=== PATIENT | female | born 1940 | race Caucasian/White ===

== ENCOUNTER 2020-04-01 09:23 | Inpatient (IN) ==
[2020-04-01] MEDS ORDERED: SODIUM CHLORIDE 0.9% 500 ML IV STA (10:03)
[2020-04-01] MEDS ORDERED: ONDANSETRON 4 MG/2 ML VIAL IV STA (10:03)
[2020-04-01 10:16] LABS: Basophils # 0.1 10*3/uL (0.0-0.2); Basophils % 0.3 % (0.0-0.8); Eosinophils # 0.2 10*3/uL (0.0-0.87); Eosinophils % 0.8 % (0.00-10.9); Hematocrit 35.4 VOL% (35.7-47.0); Immature Granulocytes % 0.6 %; Immature Granulocytes Absolute 0.12 #; Lymphocytes # 0.8 10*3/uL (1.4-4.0); Lymphocytes % 3.9 % (21.3-54.2); Mean Corpuscular HGB Conc 31.1 GM/DL (32-36); Mean Corpuscular Volume 84.5 FL (87-102); Mean Platelet Volume 8.5 FL (9.6-12.0); Neutrophils % 88.4 % (38.7-73.9); Platelet Count 492 T/CUMM (130-400); Red Blood Count 4.19 MC/CUMM (3.8-5.5); Red Cell Distribution Width 15.7 % (9.3-17.3); White Blood Count 21.1 T/CUMM (4-12)
[2020-04-01 10:23] LABS: Apearance,Urine CLEAR (Clear); Bilirubin,Urine Negative (Negative); Blood, Urine Small mg/dL (Negative); Glucose,Urine (UA) Negative (Negative); Ketones,Urine Negative (Negative); Mucus,Urine Occasional /LPF (Occasional); Nitrite,Urine Negative (Negative); Protein,Urine 30 MG/DL; RBC,Urine 4 /HPF (0-4); Squamous Epithelial Cell,Urine Occasional /HPF (0-10); Urine Color Yellow (Yellow); Urine Specific Gravity 1.015 (1.001-1.035); Urine Urobilinogen < 2.0 EU/DL (0.2-1.0); WBC,Urine <1 /HPF (0-6)
[2020-04-01] MEDS ORDERED: amLODIPine 10 MG TABLET ONE (10:29)
[2020-04-01] MEDS ORDERED: METOPROLOL TARTRATE 5 MG/5 ML VIAL IV ONE (10:29)
[2020-04-01] MEDS ORDERED: amLODIPine 5 MG TABLET PO STA (10:30)
[2020-04-01] MEDS ORDERED: METOPROLOL TARTRATE 5 MG/5 ML VIAL IV STA (10:30)
[2020-04-01 10:34] LABS: Eosinophils 2 % (0-10); Hypochromasia 1+; Lymphocytes 6 % (20-55); Ovalocytes Slight; Platelet Estimate Adequate; Segmented Neutrophils 90 % (50-85); Total Cells Counted 100
[2020-04-01 10:35] LABS: Albumin 3.3 G/DL (3.4-5.0); Bilirubin,Total 0.6 MG/DL (0.2-1.0); Microcytosis 1+; Osmolality,Calculated 266.7 MOS/KG (273-304); Total Protein 8.2 G/DL (6.4-8.3)
[2020-04-01] MEDS ORDERED: HYDROmorphone 2 MG/1 ML VIAL IV STA (11:10)
[2020-04-01] MEDS ORDERED: ONDANSETRON 4 MG/2 ML VIAL IV PRN (11:48)
[2020-04-01] MEDS ORDERED: ACETAMINOPHEN 325 MG TABLET PO PRN (11:48)
[2020-04-01] MEDS ORDERED: hydrALAZINE 20 MG/1 ML VIAL IV PRN ×2 (14:07→15:51)
[2020-04-01] MEDS: PIPERACILLIN/TAZOBACTAM 3,375 MG in SODIUM CHLORIDE 0.9% 100 ML IV SCH (16:20)
[2020-04-01] MEDS: LACTATED RINGERS 1,000 ML IV SCH (16:20)
[2020-04-01] MEDS: HYDROmorphone 2 MG/1 ML VIAL IV PRN ×2 (17:26→21:33)
[2020-04-02] MEDS: PIPERACILLIN/TAZOBACTAM 3,375 MG in SODIUM CHLORIDE 0.9% 100 ML IV SCH ×3 (00:50→17:10)
[2020-04-02] MEDS: HYDROmorphone 2 MG/1 ML VIAL IV PRN ×6 (00:55→22:58)
[2020-04-02] MEDS: LACTATED RINGERS 1,000 ML IV SCH ×2 (07:06→17:10)
[2020-04-02] MEDS: LISINOPRIL/HCTZ 20-12.5 MG TABLET PO SCH (09:06)
[2020-04-02 09:34] LABS: Basophils % 0.3 % (0.0-0.8); Eosinophils # 0.1 10*3/uL (0.0-0.87); Eosinophils % 0.9 % (0.00-10.9); Hematocrit 30.6 VOL% (35.7-47.0); Immature Granulocytes % 0.3 %; Immature Granulocytes Absolute 0.03 #; Lymphocytes # 2.2 10*3/uL (1.4-4.0); Lymphocytes % 18.9 % (21.3-54.2); Mean Corpuscular HGB Conc 29.4 GM/DL (32-36); Mean Corpuscular Volume 85.5 FL (87-102); Mean Platelet Volume 8.6 FL (9.6-12.0); Monocytes % 9.6 % (1.7-12.7); Platelet Count 418 T/CUMM (130-400); Red Blood Count 3.58 MC/CUMM (3.8-5.5); Red Cell Distribution Width 15.9 % (9.3-17.3); White Blood Count 11.8 T/CUMM (4-12)
[2020-04-02 09:51] LABS: Calcium 8.8 MG/DL (8.5-10.1); Osmolality,Calculated 260.7 MOS/KG (273-304)
[2020-04-02] MEDS: PANTOPRAZOLE 40 MG VIAL IV SCH (12:00)
[2020-04-03] MEDS: PIPERACILLIN/TAZOBACTAM 3,375 MG in SODIUM CHLORIDE 0.9% 100 ML IV SCH ×2 (01:19→10:30)
[2020-04-03] MEDS: LACTATED RINGERS 1,000 ML IV SCH (01:20)
[2020-04-03] MEDS: HYDROmorphone 2 MG/1 ML VIAL IV PRN ×2 (05:33→10:42)
[2020-04-03] MEDS: LISINOPRIL/HCTZ 20-12.5 MG TABLET PO SCH (10:18)
[2020-04-03] MEDS: PANTOPRAZOLE 40 MG VIAL IV SCH (10:19)
[2020-04-03 16:04] VITALS: BP 136/65
[2020-04-03] MEDS ORDERED: AMOXICILLIN/CLAV 875 MG TABLET PO SCH (21:00)
== END 2020-04-03 18:07 | disposition home or self-care (01) | DRG 392 ==
LOC: N.ED 09:23 → N.EDINP 11:48 → N.3E 15:15
PROVIDERS: ADMIT Surgery; ATTEND Surgery

== ENCOUNTER 2020-07-23 08:01 | Inpatient (IN) ==
[2020-07-23] MEDS ORDERED: FUROSEMIDE 40 MG/4 ML VIAL IV STA (08:31)
[2020-07-23 09:01] LABS: Basophils # 0.1 10*3/uL (0.0-0.2); Basophils % 0.5 % (0.0-0.8); Eosinophils # 1.6 10*3/uL (0.0-0.87); Hematocrit 26.4 VOL% (35.7-47.0); Hemoglobin 7.9 GM/DL (12.0-16.0); Immature Granulocytes % 0.5 %; Immature Granulocytes Absolute 0.08 #; Lymphocytes # 1.3 10*3/uL (1.4-4.0); Lymphocytes % 8.9 % (21.3-54.2); Mean Corpuscular HGB Conc 29.9 GM/DL (32-36); Mean Corpuscular Volume 79.8 FL (87-102); Mean Platelet Volume 8.5 FL (9.6-12.0); Monocytes % 11.2 % (1.7-12.7); Neutrophils % 67.9 % (38.7-73.9); Platelet Count 433 T/CUMM (130-400); Red Blood Count 3.31 MC/CUMM (3.8-5.5); Red Cell Distribution Width 16.9 % (9.3-17.3); White Blood Count 14.6 T/CUMM (4-12)
[2020-07-23 09:21] LABS: INR 1.1; Partial Thromboplastin Time 28.8 SECS (23.9-33.8)
[2020-07-23] MEDS ORDERED: DILTIAZEM 50 MG/10 ML VIAL IV STA (09:21)
[2020-07-23 09:22] LABS: Eosinophils 12 % (0-10); Hypochromasia 2+; Lymphocytes 8 % (20-55); Microcytosis 1+; Platelet Estimate Adequate; Segmented Neutrophils 70 % (50-85); Total Cells Counted 100
[2020-07-23] MEDS ORDERED: DILTIAZEM 25 MG/5 ML VIAL IV ONE (09:23)
[2020-07-23 09:24] LABS: Alanine Aminotransferase 12 U/L (13-56); Albumin 2.4 G/DL (3.4-5.0); Alkaline Phosphatase 122 U/L (45-117); Aspartate Amino Transferase 16 U/L (0-37); Bilirubin,Total < 0.39 MG/DL (0.2-1.0); Blood Urea Nitrogen 36 MG/DL (7-18); Estimated Glom Filtration Rate 30 ML/MIN; Glucose 106 MG/DL (74-106); Osmolality,Calculated 282.7 MOS/KG (273-304); Total Protein 7.3 G/DL (6.4-8.3)
[2020-07-23 09:29] LABS: Apearance,Urine CLEAR (Clear); Bilirubin,Urine Negative (Negative); Blood, Urine Negative (Negative); Glucose,Urine (UA) Negative (Negative); Hyaline Casts,Urine 5 /LPF (0-3); Ketones,Urine Negative (Negative); Mucus,Urine Occasional /LPF (Occasional); Nitrite,Urine Negative (Negative); Protein,Urine 30 MG/DL; RBC,Urine 3 /HPF (0-4); Squamous Epithelial Cell,Urine Occasional /HPF (0-10); Urine Color Yellow (Yellow); Urine Specific Gravity 1.017 (1.001-1.035); Urine Urobilinogen < 2.0 EU/DL (0.2-1.0); WBC,Urine 3 /HPF (0-6)
[2020-07-23] MEDS ORDERED: dilTIAZem Drip 125 MG/125 ML PREMIX IV SCH (09:30)
[2020-07-23] MEDS ORDERED: GLUCAGON 1 MG VIAL IM PRN (10:40)
[2020-07-23] MEDS ORDERED: DEXTROSE 50% 25 GM/50 ML VIAL IV PRN (10:40)
[2020-07-23] MEDS ORDERED: ONDANSETRON 4 MG/2 ML VIAL IV PRN (10:40)
[2020-07-23] MEDS ORDERED: ACETAMINOPHEN 325 MG TABLET PO PRN (10:40)
[2020-07-23] MEDS ORDERED: diphenhydrAMINE CAP 25 MG CAPSULE PO PRN (11:21)
[2020-07-23 11:54] LABS: % Iron Saturation 4.2 % (18-50)
[2020-07-23] MEDS ORDERED: ENOXAPARIN 100 MG/ML SYRINGE SUBCUT SCH (13:00)
[2020-07-23 13:38] LABS: Folate 12.3 NG/ML (5.4-24.0)
[2020-07-23] MEDS: SODIUM CHLORIDE 0.9% 1,000 ML IV SCH (14:39)
[2020-07-23] MEDS: IRON SUCROSE 200 MG in SODIUM CHLORIDE 0.9% 100 ML IV SCH (14:39)
[2020-07-23] MEDS: VANCOMYCIN INJ 1,500 MG in SODIUM CHLORIDE 0.9% 500 ML IV SCH (15:55)
[2020-07-23] MEDS ORDERED: SKIN HEALING OINT (AQUAPHOR) 50 GM TUBE TOP PRN (16:32)
[2020-07-23] MEDS ORDERED: diphenhydrAMINE 50 MG/1 ML VIAL IV PRN (16:48)
[2020-07-23] MEDS ORDERED: diphenhydrAMINE CAP 25 MG CAPSULE PO SCH (18:00)
[2020-07-23] MEDS: dilTIAZem Drip 125 MG/125 ML PREMIX IV SCH (18:21)
[2020-07-23] MEDS: CEFEPIME 1,000 MG in SODIUM CHLORIDE 0.9% 100 ML IV SCH (18:36)
[2020-07-23] MEDS: METOPROLOL TARTRATE 25 MG TABLET PO SCH (21:06)
[2020-07-23] MEDS: ASCORBIC ACID 500 MG TABLET PO SCH (21:06)
[2020-07-23] MEDS: rOPINIRole 4 MG TABLET PO SCH (21:06)
[2020-07-23] MEDS: CYCLOBENZAPRINE 10 MG TABLET PO SCH (21:06)
[2020-07-24] MEDS: dilTIAZem Drip 125 MG/125 ML PREMIX IV SCH (01:39)
[2020-07-24 05:23] LABS: Basophils # 0.1 10*3/uL (0.0-0.2); Basophils % 0.4 % (0.0-0.8); Eosinophils # 2.1 10*3/uL (0.0-0.87); Eosinophils % 14.8 % (0.00-10.9); Hematocrit 24.7 VOL% (35.7-47.0); Hemoglobin 7.4 GM/DL (12.0-16.0); Immature Granulocytes % 0.6 %; Immature Granulocytes Absolute 0.08 #; Lymphocytes # 1.3 10*3/uL (1.4-4.0); Lymphocytes % 9.5 % (21.3-54.2); Mean Corpuscular Volume 79.7 FL (87-102); Mean Platelet Volume 8.6 FL (9.6-12.0); Monocytes % 12.2 % (1.7-12.7); Neutrophils % 62.5 % (38.7-73.9); Platelet Count 417 T/CUMM (130-400); Red Cell Distribution Width 16.7 % (9.3-17.3); White Blood Count 14.2 T/CUMM (4-12)
[2020-07-24] MEDS: CEFEPIME 1,000 MG in SODIUM CHLORIDE 0.9% 100 ML IV SCH ×2 (05:39→17:04)
[2020-07-24] MEDS: SODIUM CHLORIDE 0.9% 1,000 ML IV SCH ×3 (05:42→17:05)
[2020-07-24 06:01] LABS: Albumin 1.9 G/DL (3.4-5.0); Bilirubin,Total 0.9 MG/DL (0.2-1.0); Calcium 7.9 MG/DL (8.5-10.1); Osmolality,Calculated 283.5 MOS/KG (273-304); Thyroid Stimulating Hormone 3.66 uIU/ml (0.358-3.74); Total Protein 6.4 G/DL (6.4-8.3)
[2020-07-24 06:22] LABS: Elliptocytes Few; Eosinophils 7 % (0-10); Hypochromasia 3+; Lymphocytes 12 % (20-55); Platelet Estimate Increased; Polychromasia Slight; Schistocytes Few; Segmented Neutrophils 74 % (50-85); Total Cells Counted 100
[2020-07-24] MEDS ORDERED: MAGNESIUM SULF RIDER 2 GM in PREMIX 1 EACH IV PRN (06:49)
[2020-07-24] MEDS ORDERED: MAGNESIUM SULF RIDER 4 GM in PREMIX 1 EACH IV PRN (06:49)
[2020-07-24] MEDS ORDERED: FUROSEMIDE 40 MG/4 ML VIAL IV SCH (09:00)
[2020-07-24] MEDS ORDERED: POTASSIUM CHLORIDE 20 MEQ TABLET PO ONE (09:08)
[2020-07-24] MEDS ORDERED: MAGNESIUM SULF RIDER 4 GM in PREMIX 1 EACH IV ONE (09:08)
[2020-07-24] MEDS: ASCORBIC ACID 500 MG TABLET PO SCH ×2 (09:34→21:36)
[2020-07-24] MEDS: ASPIRIN EC 81 MG TABLET PO SCH (09:34)
[2020-07-24] MEDS: METOPROLOL TARTRATE 25 MG TABLET PO SCH ×2 (09:34→21:37)
[2020-07-24] MEDS: ESCITALOPRAM 10 MG TABLET PO SCH (09:38)
[2020-07-24] MEDS: IRON SUCROSE 200 MG in SODIUM CHLORIDE 0.9% 100 ML IV SCH (09:39)
[2020-07-24] MEDS: ENOXAPARIN 30 MG/0.3 ML SYRINGE SUBCUT SCH (09:39)
[2020-07-24] MEDS: VANCOMYCIN INJ 1,500 MG in SODIUM CHLORIDE 0.9% 500 ML IV SCH (15:26)
[2020-07-24] MEDS: CYCLOBENZAPRINE 10 MG TABLET PO SCH (21:36)
[2020-07-24] MEDS: rOPINIRole 4 MG TABLET PO SCH (21:36)
[2020-07-25] MEDS: SODIUM CHLORIDE 0.9% 1,000 ML IV SCH (04:38)
[2020-07-25] MEDS: CEFEPIME 1,000 MG in SODIUM CHLORIDE 0.9% 100 ML IV SCH ×2 (05:54→17:16)
[2020-07-25 06:25] LABS: Basophils % 0.3 % (0.0-0.8); Eosinophils # 1.9 10*3/uL (0.0-0.87); Eosinophils % 14.3 % (0.00-10.9); Hematocrit 25.6 VOL% (35.7-47.0); Hemoglobin 7.7 GM/DL (12.0-16.0); Immature Granulocytes % 0.8 %; Lymphocytes # 1.5 10*3/uL (1.4-4.0); Lymphocytes % 11.2 % (21.3-54.2); Mean Corpuscular HGB Conc 30.1 GM/DL (32-36); Mean Corpuscular Volume 79.5 FL (87-102); Mean Platelet Volume 8.7 FL (9.6-12.0); Monocytes % 11.3 % (1.7-12.7); Neutrophils % 62.1 % (38.7-73.9); Platelet Count 445 T/CUMM (130-400); Red Blood Count 3.22 MC/CUMM (3.8-5.5); Red Cell Distribution Width 17.3 % (9.3-17.3); White Blood Count 13.3 T/CUMM (4-12)
[2020-07-25 06:49] LABS: Alanine Aminotransferase 11 U/L (13-56); Albumin 1.9 G/DL (3.4-5.0); Alkaline Phosphatase 119 U/L (45-117); Aspartate Amino Transferase 15 U/L (0-37); Bilirubin,Total < 0.39 MG/DL (0.2-1.0); Blood Urea Nitrogen 29 MG/DL (7-18); Calcium 8.5 MG/DL (8.5-10.1); Estimated Glom Filtration Rate 50 ML/MIN; Glucose 94 MG/DL (74-106); Osmolality,Calculated 280.7 MOS/KG (273-304); Total Protein 6.8 G/DL (6.4-8.3)
[2020-07-25] MEDS: METOPROLOL TARTRATE 25 MG TABLET PO SCH ×3 (09:34→22:02)
[2020-07-25] MEDS: ASPIRIN EC 81 MG TABLET PO SCH (09:34)
[2020-07-25] MEDS: ESCITALOPRAM 10 MG TABLET PO SCH (09:34)
[2020-07-25] MEDS: ENOXAPARIN 30 MG/0.3 ML SYRINGE SUBCUT SCH (09:35)
[2020-07-25] MEDS: IRON SUCROSE 200 MG in SODIUM CHLORIDE 0.9% 100 ML IV SCH (09:36)
[2020-07-25] MEDS: ASCORBIC ACID 500 MG TABLET PO SCH ×2 (09:43→20:54)
[2020-07-25 10:09] LABS: Band Neutrophils 2 % (0-10); Elliptocytes Few; Eosinophils 11 % (0-10); Hypochromasia 3+; Lymphocytes 8 % (20-55); Platelet Estimate Increased; Polychromasia Slight; Schistocytes Few; Segmented Neutrophils 67 % (50-85); Target Cells Few; Total Cells Counted 100
[2020-07-25] MEDS: FUROSEMIDE 40 MG/4 ML VIAL IV SCH (11:44)
[2020-07-25] MEDS: VANCOMYCIN INJ 1,500 MG in SODIUM CHLORIDE 0.9% 500 ML IV SCH (14:41)
[2020-07-25] MEDS: NYSTATIN 500,000 UNIT/5 ML UDCUP SWISH/SWAL SCH ×2 (17:17→20:54)
[2020-07-25] MEDS: rOPINIRole 4 MG TABLET PO SCH (20:54)
[2020-07-25] MEDS: CYCLOBENZAPRINE 10 MG TABLET PO SCH (20:54)
[2020-07-26 05:48] LABS: Basophils # 0.1 10*3/uL (0.0-0.2); Basophils % 0.6 % (0.0-0.8); Eosinophils # 1.8 10*3/uL (0.0-0.87); Eosinophils % 12.8 % (0.00-10.9); Hematocrit 24.9 VOL% (35.7-47.0); Hemoglobin 7.7 GM/DL (12.0-16.0); Immature Granulocytes % 1.5 %; Immature Granulocytes Absolute 0.22 #; Lymphocytes # 1.9 10*3/uL (1.4-4.0); Mean Corpuscular HGB Conc 30.9 GM/DL (32-36); Mean Corpuscular Volume 77.8 FL (87-102); Mean Platelet Volume 8.8 FL (9.6-12.0); Monocytes % 8.6 % (1.7-12.7); NRBC # 0.03 10*3/uL; Neutrophils % 63.5 % (38.7-73.9); Platelet Count 481 T/CUMM (130-400); Red Cell Distribution Width 17.1 % (9.3-17.3); White Blood Count 14.3 T/CUMM (4-12)
[2020-07-26] MEDS: CEFEPIME 1,000 MG in SODIUM CHLORIDE 0.9% 100 ML IV SCH (06:11)
[2020-07-26 06:14] LABS: Alanine Aminotransferase 13 U/L (13-56); Alkaline Phosphatase 117 U/L (45-117); Aspartate Amino Transferase 20 U/L (0-37); Bilirubin,Total < 0.39 MG/DL (0.2-1.0); Blood Urea Nitrogen 25 MG/DL (7-18); Calcium 8.5 MG/DL (8.5-10.1); Estimated Glom Filtration Rate 41 ML/MIN; Glucose 84 MG/DL (74-106); Osmolality,Calculated 277.7 MOS/KG (273-304); Total Protein 6.9 G/DL (6.4-8.3)
[2020-07-26 06:23] LABS: Eosinophils 19 % (0-10); Hypochromasia 2+; Lymphocytes 14 % (20-55); Microcytosis Slight; Nucleated Red Blood Cells 1 (0-5); Platelet Estimate Increased; Segmented Neutrophils 57 % (50-85); Total Cells Counted 100
[2020-07-26] MEDS ORDERED: ACETAMINOPHEN 325 MG TABLET PO SCH (07:00)
[2020-07-26] MEDS ORDERED: SODIUM CHLORIDE 0.9% 1,000 ML IV PRN (07:00)
[2020-07-26] MEDS ORDERED: FUROSEMIDE 20 MG/2 ML VIAL IV SCH (07:00)
[2020-07-26] MEDS ORDERED: diphenhydrAMINE CAP 25 MG CAPSULE PO SCH (07:00)
[2020-07-26] MEDS: ENOXAPARIN 30 MG/0.3 ML SYRINGE SUBCUT SCH (09:22)
[2020-07-26] MEDS: IRON SUCROSE 200 MG in SODIUM CHLORIDE 0.9% 100 ML IV SCH (09:22)
[2020-07-26] MEDS: FUROSEMIDE 40 MG/4 ML VIAL IV SCH (09:23)
[2020-07-26] MEDS: NYSTATIN 500,000 UNIT/5 ML UDCUP SWISH/SWAL SCH ×4 (09:23→21:51)
[2020-07-26] MEDS: METOPROLOL TARTRATE 25 MG TABLET PO SCH (09:24)
[2020-07-26] MEDS: ASCORBIC ACID 500 MG TABLET PO SCH ×2 (09:24→21:50)
[2020-07-26] MEDS: LACTOBACILLUS RHAMNOSUS GG CAPSULE PO SCH ×2 (09:24→21:56)
[2020-07-26] MEDS: CEFUROXIME 500 MG TABLET PO SCH ×2 (09:24→21:56)
[2020-07-26] MEDS: ESCITALOPRAM 10 MG TABLET PO SCH (09:24)
[2020-07-26] MEDS: ASPIRIN EC 81 MG TABLET PO SCH (09:25)
[2020-07-26] MEDS ORDERED: METOPROLOL TARTRATE 5 MG/5 ML VIAL IV ONE (16:08)
[2020-07-26 19:02] LABS: Hematocrit 31.4 VOL% (35.7-47.0); Hemoglobin 10.1 GM/DL (12.0-16.0)
[2020-07-26] MEDS ORDERED: METOPROLOL TARTRATE 50 MG TABLET PO SCH (21:00)
[2020-07-26] MEDS: CYCLOBENZAPRINE 10 MG TABLET PO SCH (21:50)
[2020-07-26] MEDS: rOPINIRole 4 MG TABLET PO SCH (21:51)
[2020-07-27] MEDS ORDERED: METOPROLOL TARTRATE 25 MG TABLET PO SCH (07:05)
[2020-07-27] MEDS ORDERED: METOPROLOL TARTRATE 50 MG TABLET PO SCH (07:12)
[2020-07-27 07:47] VITALS: BP 176/86
[2020-07-27] MEDS: FUROSEMIDE 40 MG/4 ML VIAL IV SCH (08:22)
[2020-07-27] MEDS: LACTOBACILLUS RHAMNOSUS GG CAPSULE PO SCH (08:22)
[2020-07-27] MEDS: ASPIRIN EC 81 MG TABLET PO SCH (08:22)
[2020-07-27] MEDS: ESCITALOPRAM 10 MG TABLET PO SCH (08:22)
[2020-07-27] MEDS: NYSTATIN 500,000 UNIT/5 ML UDCUP SWISH/SWAL SCH (08:22)
[2020-07-27] MEDS: ASCORBIC ACID 500 MG TABLET PO SCH (08:22)
[2020-07-27] MEDS: CEFUROXIME 500 MG TABLET PO SCH (08:23)
[2020-07-27] MEDS: ENOXAPARIN 30 MG/0.3 ML SYRINGE SUBCUT SCH (08:23)
[2020-07-27] MEDS ORDERED: METOPROLOL SUCCINATE XL 100 MG TABLET PO SCH (09:00)
[2020-07-27] MEDS: IRON SUCROSE 200 MG in SODIUM CHLORIDE 0.9% 100 ML IV SCH (09:07)
[2020-07-27] MEDS ORDERED: APIXABAN 2.5 MG TABLET PO ONE (10:30)
[2020-07-27] MEDS ORDERED: APIXABAN 2.5 MG TABLET PO SCH (21:00)
== END 2020-07-27 11:58 | disposition home health service (06) | DRG 603 ==
LOC: EDUNIT# → EDBD → N.ED 08:01 → N.EDINP 10:34 → SUATTDRO 10:34 → N.TELEN 12:11
PROVIDERS: ADMIT Internal Medicine; ATTEND Internal Medicine

== ENCOUNTER 2021-03-16 11:17 | Inpatient (IN) ==
[2021-03-16 12:08] LABS: Basophils # 0.1 10*3/uL (0.0-0.2); Basophils % 0.7 % (0.0-0.8); Eosinophils % 7.1 % (0.00-10.9); Hematocrit 33.8 VOL% (35.7-47.0); Hemoglobin 10.5 GM/DL (12.0-16.0); Immature Granulocytes % 0.5 %; Immature Granulocytes Absolute 0.07 #; Lymphocytes # 1.3 10*3/uL (1.4-4.0); Lymphocytes % 9.3 % (21.3-54.2); Mean Corpuscular HGB Conc 31.1 GM/DL (32-36); Mean Corpuscular Volume 94.7 FL (87-102); Mean Platelet Volume 8.6 FL (9.6-12.0); Monocytes % 9.3 % (1.7-12.7); Neutrophils % 73.1 % (38.7-73.9); Platelet Count 302 T/CUMM (130-400); Red Blood Count 3.57 MC/CUMM (3.8-5.5); Red Cell Distribution Width 14.2 % (9.3-17.3); White Blood Count 13.5 T/CUMM (4-12)
[2021-03-16 12:37] LABS: Alanine Aminotransferase 20 U/L (13-56); Albumin 3.1 G/DL (3.4-5.0); Alkaline Phosphatase 106 U/L (45-117); Aspartate Amino Transferase 16 U/L (0-37); Bilirubin,Total < 0.39 MG/DL (0.2-1.0); Blood Urea Nitrogen 57 MG/DL (7-18); Carbon Dioxide 19 MMOL/L (21-32); Estimated Glom Filtration Rate 33 ML/MIN; Glucose 95 MG/DL (74-106); Osmolality,Calculated 290.7 MOS/KG (273-304); Potassium 4.8 MMOL/L (3.5-5.1); Sodium 138 MMOL/L (136-145); Total Protein 7.6 G/DL (6.4-8.2)
[2021-03-16] MEDS ORDERED: VANCOMYCIN INJ 1,000 MG in SODIUM CHLORIDE 0.9% 250 ML IV STA (12:48)
[2021-03-16] MEDS ORDERED: SODIUM CHLORIDE 0.9% 500 ML IV STA (12:48)
[2021-03-16] MEDS ORDERED: GLUCAGON 1 MG VIAL IM PRN (13:47)
[2021-03-16] MEDS ORDERED: ONDANSETRON 4 MG/2 ML VIAL IV PRN (13:47)
[2021-03-16] MEDS ORDERED: hydrALAZINE 20 MG/1 ML VIAL IV PRN (13:47)
[2021-03-16] MEDS ORDERED: DEXTROSE 50% 25 GM/50 ML VIAL IV PRN (13:47)
[2021-03-16] MEDS ORDERED: SODIUM CHLORIDE 0.9% 1,000 ML IV ONE (14:05)
[2021-03-16] MEDS: CEFEPIME 2,000 MG in SODIUM CHLORIDE 0.9% 100 ML IV SCH (16:25)
[2021-03-16] MEDS: ENOXAPARIN 40 MG/0.4 ML SYRINGE SUBCUT SCH (20:10)
[2021-03-16] MEDS: MORPHINE 4 MG/1 ML VIAL IV PRN ×2 (21:35→22:40)
[2021-03-17] MEDS: CEFEPIME 2,000 MG in SODIUM CHLORIDE 0.9% 100 ML IV SCH ×3 (00:11→15:53)
[2021-03-17] MEDS: rOPINIRole 1 MG TABLET PO SCH ×2 (01:42→21:42)
[2021-03-17 06:10] LABS: Basophils # 0.1 10*3/uL (0.0-0.2); Basophils % 0.4 % (0.0-0.8); Eosinophils # 0.7 10*3/uL (0.0-0.87); Eosinophils % 5.8 % (0.00-10.9); Hematocrit 28.8 VOL% (35.7-47.0); Hemoglobin 9.3 GM/DL (12.0-16.0); Immature Granulocytes % 0.3 %; Immature Granulocytes Absolute 0.04 #; Lymphocytes # 1.1 10*3/uL (1.4-4.0); Lymphocytes % 9.2 % (21.3-54.2); Mean Corpuscular HGB Conc 32.3 GM/DL (32-36); Mean Corpuscular Volume 92.6 FL (87-102); Mean Platelet Volume 8.7 FL (9.6-12.0); Monocytes % 10.6 % (1.7-12.7); Neutrophils % 73.7 % (38.7-73.9); Platelet Count 273 T/CUMM (130-400); Red Blood Count 3.11 MC/CUMM (3.8-5.5); Red Cell Distribution Width 14.5 % (9.3-17.3); White Blood Count 11.7 T/CUMM (4-12)
[2021-03-17 06:19] LABS: Calcium 8.3 MG/DL (8.5-10.1); Osmolality,Calculated 286.4 MOS/KG (273-304); Potassium 4.3 MMOL/L (3.5-5.1)
[2021-03-17] MEDS: PANTOPRAZOLE 40 MG TABLET PO SCH (09:24)
[2021-03-17] MEDS: VANCOMYCIN INJ 1,500 MG in SODIUM CHLORIDE 0.9% 500 ML IV SCH (09:25)
[2021-03-17] MEDS: ENOXAPARIN 40 MG/0.4 ML SYRINGE SUBCUT SCH (21:41)
[2021-03-18] MEDS: CEFEPIME 2,000 MG in SODIUM CHLORIDE 0.9% 100 ML IV SCH ×2 (00:11→08:50)
[2021-03-18 06:50] LABS: Basophils # 0.1 10*3/uL (0.0-0.2); Basophils % 0.6 % (0.0-0.8); Eosinophils # 0.9 10*3/uL (0.0-0.87); Eosinophils % 8.7 % (0.00-10.9); Hematocrit 29.7 VOL% (35.7-47.0); Hemoglobin 9.5 GM/DL (12.0-16.0); Immature Granulocytes % 0.9 %; Immature Granulocytes Absolute 0.09 #; Lymphocytes # 1.5 10*3/uL (1.4-4.0); Lymphocytes % 14.5 % (21.3-54.2); Mean Corpuscular Volume 93.1 FL (87-102); Mean Platelet Volume 8.5 FL (9.6-12.0); Monocytes % 10.9 % (1.7-12.7); Neutrophils % 64.4 % (38.7-73.9); Platelet Count 305 T/CUMM (130-400); Red Blood Count 3.19 MC/CUMM (3.8-5.5); Red Cell Distribution Width 14.3 % (9.3-17.3); White Blood Count 10.1 T/CUMM (4-12)
[2021-03-18 07:27] LABS: Calcium 8.6 MG/DL (8.5-10.1); Osmolality,Calculated 284.1 MOS/KG (273-304); Potassium 3.7 MMOL/L (3.5-5.1)
[2021-03-18] MEDS: PANTOPRAZOLE 40 MG TABLET PO SCH (08:46)
[2021-03-18] MEDS: VANCOMYCIN INJ 1,500 MG in SODIUM CHLORIDE 0.9% 500 ML IV SCH (08:48)
[2021-03-18] MEDS: COLLAGENASE OINT 30 GM TUBE TOP SCH (11:33)
[2021-03-18] MEDS: CEFEPIME 1,000 MG in SODIUM CHLORIDE 0.9% 100 ML IV SCH ×2 (12:33→17:30)
[2021-03-18] MEDS: SODIUM CHLORIDE 0.9% 1,000 ML IV SCH (13:33)
[2021-03-18] MEDS: MORPHINE 4 MG/1 ML VIAL IV PRN (13:40)
[2021-03-18] MEDS: CYCLOBENZAPRINE 10 MG TABLET PO SCH ×2 (14:44→21:29)
[2021-03-18] MEDS: lisinopriL 20 MG TABLET PO SCH (21:29)
[2021-03-18] MEDS: rOPINIRole 1 MG TABLET PO SCH (21:30)
[2021-03-18] MEDS: ENOXAPARIN 40 MG/0.4 ML SYRINGE SUBCUT SCH (21:30)
[2021-03-19] MEDS: CEFEPIME 1,000 MG in SODIUM CHLORIDE 0.9% 100 ML IV SCH ×4 (00:05→17:03)
[2021-03-19 06:31] LABS: Basophils # 0.1 10*3/uL (0.0-0.2); Basophils % 0.6 % (0.0-0.8); Eosinophils % 9.1 % (0.00-10.9); Hematocrit 32.6 VOL% (35.7-47.0); Hemoglobin 10.2 GM/DL (12.0-16.0); Immature Granulocytes Absolute 0.22 #; Lymphocytes # 1.6 10*3/uL (1.4-4.0); Lymphocytes % 14.5 % (21.3-54.2); Mean Corpuscular HGB Conc 31.3 GM/DL (32-36); Mean Corpuscular Volume 93.7 FL (87-102); Mean Platelet Volume 8.7 FL (9.6-12.0); Monocytes % 9.6 % (1.7-12.7); Neutrophils % 64.2 % (38.7-73.9); Platelet Count 336 T/CUMM (130-400); Red Blood Count 3.48 MC/CUMM (3.8-5.5); Red Cell Distribution Width 14.6 % (9.3-17.3); White Blood Count 11.3 T/CUMM (4-12)
[2021-03-19 06:47] LABS: Calcium 8.7 MG/DL (8.5-10.1); Osmolality,Calculated 280.4 MOS/KG (273-304); Potassium 4.1 MMOL/L (3.5-5.1)
[2021-03-19] MEDS: SODIUM CHLORIDE 0.9% 1,000 ML IV SCH ×3 (07:26→13:38)
[2021-03-19] MEDS: lisinopriL 20 MG TABLET PO SCH ×2 (09:55→21:35)
[2021-03-19] MEDS: PANTOPRAZOLE 40 MG TABLET PO SCH (09:56)
[2021-03-19] MEDS: VANCOMYCIN INJ 1,500 MG in SODIUM CHLORIDE 0.9% 500 ML IV SCH (09:58)
[2021-03-19] MEDS: CYCLOBENZAPRINE 10 MG TABLET PO SCH ×3 (09:58→21:35)
[2021-03-19] MEDS: COLLAGENASE OINT 30 GM TUBE TOP SCH (09:59)
[2021-03-19] MEDS: NYSTATIN 500,000 UNIT/5 ML UDCUP SWISH/SWAL SCH ×3 (13:44→21:36)
[2021-03-19] MEDS: rOPINIRole 1 MG TABLET PO SCH (21:35)
[2021-03-19] MEDS: ENOXAPARIN 40 MG/0.4 ML SYRINGE SUBCUT SCH (21:39)
[2021-03-19] MEDS: hydrOXYzine HCL 25 MG TABLET PO PRN (22:49)
[2021-03-20] MEDS: CEFEPIME 1,000 MG in SODIUM CHLORIDE 0.9% 100 ML IV SCH ×5 (00:14→23:06)
[2021-03-20] MEDS: SODIUM CHLORIDE 0.9% 1,000 ML IV SCH ×2 (05:32→18:16)
[2021-03-20 06:18] LABS: Basophils # 0.1 10*3/uL (0.0-0.2); Basophils % 0.5 % (0.0-0.8); Eosinophils # 1.3 10*3/uL (0.0-0.87); Eosinophils % 12.5 % (0.00-10.9); Hematocrit 29.8 VOL% (35.7-47.0); Hemoglobin 9.6 GM/DL (12.0-16.0); Immature Granulocytes % 2.6 %; Immature Granulocytes Absolute 0.26 #; Lymphocytes # 1.6 10*3/uL (1.4-4.0); Lymphocytes % 15.8 % (21.3-54.2); Mean Corpuscular HGB Conc 32.2 GM/DL (32-36); Mean Corpuscular Volume 92.3 FL (87-102); Mean Platelet Volume 8.6 FL (9.6-12.0); Monocytes % 9.9 % (1.7-12.7); Neutrophils % 58.7 % (38.7-73.9); Platelet Count 306 T/CUMM (130-400); Red Blood Count 3.23 MC/CUMM (3.8-5.5); Red Cell Distribution Width 14.6 % (9.3-17.3); White Blood Count 10.1 T/CUMM (4-12)
[2021-03-20 06:45] LABS: Calcium 8.4 MG/DL (8.5-10.1); Potassium 3.8 MMOL/L (3.5-5.1)
[2021-03-20 07:12] LABS: Anisocytosis 1+; Band Neutrophils 5 % (0-10); Burr Cells Few; Eosinophils 14 % (0-10); Lymphocytes 20 % (20-55); Macrocytosis Slight; Myelocytes 1 %; Platelet Estimate Normal; Segmented Neutrophils 52 % (50-85); Spherocytes Few; Total Cells Counted 100
[2021-03-20] MEDS ORDERED: MAGNESIUM SULF RIDER 2 GM/50 ML PREMIX IV ONE (07:44)
[2021-03-20] MEDS: PANTOPRAZOLE 40 MG TABLET PO SCH (08:59)
[2021-03-20] MEDS: CYCLOBENZAPRINE 10 MG TABLET PO SCH ×3 (08:59→21:02)
[2021-03-20] MEDS: NYSTATIN 500,000 UNIT/5 ML UDCUP SWISH/SWAL SCH ×4 (08:59→21:03)
[2021-03-20] MEDS: lisinopriL 20 MG TABLET PO SCH ×2 (08:59→21:02)
[2021-03-20] MEDS: VANCOMYCIN INJ 1,500 MG in SODIUM CHLORIDE 0.9% 500 ML IV SCH (09:00)
[2021-03-20] MEDS: LACTOBACILLUS ACIDOPHILUS/BULGARICUS CHEW TABLET PO SCH (13:45)
[2021-03-20] MEDS: COLLAGENASE OINT 30 GM TUBE TOP SCH (14:46)
[2021-03-20] MEDS: rOPINIRole 1 MG TABLET PO SCH (21:02)
[2021-03-20] MEDS: ENOXAPARIN 40 MG/0.4 ML SYRINGE SUBCUT SCH (21:03)
[2021-03-20] MEDS: hydrOXYzine HCL 25 MG TABLET PO PRN (23:10)
[2021-03-21] MEDS: SODIUM CHLORIDE 0.9% 1,000 ML IV SCH (01:43)
[2021-03-21] MEDS: CEFEPIME 1,000 MG in SODIUM CHLORIDE 0.9% 100 ML IV SCH ×3 (05:34→23:53)
[2021-03-21 06:19] LABS: Basophils # 0.1 10*3/uL (0.0-0.2); Basophils % 0.5 % (0.0-0.8); Eosinophils # 1.5 10*3/uL (0.0-0.87); Eosinophils % 12.1 % (0.00-10.9); Hematocrit 31.4 VOL% (35.7-47.0); Hemoglobin 9.8 GM/DL (12.0-16.0); Immature Granulocytes % 3.3 %; Lymphocytes # 2.1 10*3/uL (1.4-4.0); Mean Corpuscular HGB Conc 31.2 GM/DL (32-36); Mean Platelet Volume 8.6 FL (9.6-12.0); Monocytes % 7.9 % (1.7-12.7); Neutrophils % 59.2 % (38.7-73.9); Platelet Count 354 T/CUMM (130-400); Red Blood Count 3.34 MC/CUMM (3.8-5.5); Red Cell Distribution Width 14.4 % (9.3-17.3); White Blood Count 12.1 T/CUMM (4-12)
[2021-03-21 06:45] LABS: Calcium 8.1 MG/DL (8.5-10.1); Osmolality,Calculated 280.3 MOS/KG (273-304)
[2021-03-21 06:49] LABS: Band Neutrophils 1 % (0-10); Eosinophils 12 % (0-10); Hypochromasia 1+; Lymphocytes 18 % (20-55); Microcytosis Slight; Myelocytes 1 %; Segmented Neutrophils 61 % (50-85); Total Cells Counted 100
[2021-03-21 06:50] LABS: Platelet Estimate Normal
[2021-03-21] MEDS: LACTOBACILLUS ACIDOPHILUS/BULGARICUS CHEW TABLET PO SCH (09:18)
[2021-03-21] MEDS: NYSTATIN 500,000 UNIT/5 ML UDCUP SWISH/SWAL SCH ×4 (09:18→20:57)
[2021-03-21] MEDS: PANTOPRAZOLE 40 MG TABLET PO SCH (09:18)
[2021-03-21] MEDS: CYCLOBENZAPRINE 10 MG TABLET PO SCH ×3 (09:19→20:30)
[2021-03-21] MEDS: lisinopriL 20 MG TABLET PO SCH ×2 (09:19→20:30)
[2021-03-21] MEDS ORDERED: FUROSEMIDE 20 MG/2 ML VIAL IV ONE (12:00)
[2021-03-21] MEDS: VANCOMYCIN INJ 1,500 MG in SODIUM CHLORIDE 0.9% 500 ML IV SCH (12:28)
[2021-03-21] MEDS: COLLAGENASE OINT 30 GM TUBE TOP SCH (12:31)
[2021-03-21] MEDS: hydrOXYzine HCL 25 MG TABLET PO PRN (16:52)
[2021-03-21] MEDS: rOPINIRole 1 MG TABLET PO SCH (20:30)
[2021-03-21] MEDS: ENOXAPARIN 40 MG/0.4 ML SYRINGE SUBCUT SCH (20:31)
[2021-03-22] MEDS: CEFEPIME 1,000 MG in SODIUM CHLORIDE 0.9% 100 ML IV SCH ×3 (05:35→17:22)
[2021-03-22 06:05] LABS: Basophils # 0.1 10*3/uL (0.0-0.2); Basophils % 0.5 % (0.0-0.8); Eosinophils # 1.6 10*3/uL (0.0-0.87); Eosinophils % 13.2 % (0.00-10.9); Hemoglobin 9.1 GM/DL (12.0-16.0); Immature Granulocytes % 4.3 %; Immature Granulocytes Absolute 0.52 #; Lymphocytes # 1.9 10*3/uL (1.4-4.0); Lymphocytes % 15.4 % (21.3-54.2); Mean Corpuscular HGB Conc 31.4 GM/DL (32-36); Mean Corpuscular Volume 93.9 FL (87-102); Mean Platelet Volume 8.7 FL (9.6-12.0); Monocytes % 9.4 % (1.7-12.7); Neutrophils % 57.2 % (38.7-73.9); Platelet Count 334 T/CUMM (130-400); Red Blood Count 3.09 MC/CUMM (3.8-5.5); Red Cell Distribution Width 14.5 % (9.3-17.3); White Blood Count 12.2 T/CUMM (4-12)
[2021-03-22 06:30] LABS: Calcium 8.5 MG/DL (8.5-10.1); Osmolality,Calculated 278.4 MOS/KG (273-304); Potassium 4.2 MMOL/L (3.5-5.1)
[2021-03-22 06:32] LABS: Eosinophils 19 % (0-10); Hypochromasia 1+; Lymphocytes 18 % (20-55); Microcytosis 1+; Ovalocytes Slight; Platelet Estimate Adequate; Segmented Neutrophils 53 % (50-85); Total Cells Counted 100
[2021-03-22] MEDS: SODIUM CHLORIDE 0.9% 1,000 ML IV SCH (07:58)
[2021-03-22] MEDS: CYCLOBENZAPRINE 10 MG TABLET PO SCH ×2 (09:36→15:00)
[2021-03-22] MEDS: lisinopriL 20 MG TABLET PO SCH (09:36)
[2021-03-22] MEDS: NYSTATIN 500,000 UNIT/5 ML UDCUP SWISH/SWAL SCH ×3 (09:36→16:42)
[2021-03-22] MEDS: VANCOMYCIN INJ 1,500 MG in SODIUM CHLORIDE 0.9% 500 ML IV SCH (09:37)
[2021-03-22] MEDS: PANTOPRAZOLE 40 MG TABLET PO SCH (09:37)
[2021-03-22] MEDS: COLLAGENASE OINT 30 GM TUBE TOP SCH (09:38)
[2021-03-22] MEDS: LACTOBACILLUS ACIDOPHILUS/BULGARICUS CHEW TABLET PO SCH (09:38)
[2021-03-22 16:54] VITALS: BP 160/61
== END 2021-03-22 18:35 | disposition home health service (06) | DRG 603 ==
LOC: EDUNIT# → N.EDINP 11:17 → N.ED 11:17 → N.3E 18:30 → SUATTDRO 03-18 11:02
PROVIDERS: ADMIT Emergency Medicine; ATTEND Internal Medicine

== ENCOUNTER 2021-04-15 11:49 | Inpatient (IN) ==
[2021-04-15] MEDS ORDERED: SODIUM CHLORIDE 0.9% 1,000 ML IV STA (12:48)
[2021-04-15] MEDS ORDERED: CEFEPIME 1,000 MG in SODIUM CHLORIDE 0.9% 100 ML IV STA (12:50)
[2021-04-15] MEDS ORDERED: MORPHINE 4 MG/1 ML VIAL IV ONE (12:52)
[2021-04-15] MEDS ORDERED: ONDANSETRON 4 MG/2 ML VIAL IV STA (12:52)
[2021-04-15] MEDS ORDERED: HYDROmorphone 2 MG/1 ML VIAL ONE (13:14)
[2021-04-15 13:17] LABS: Basophils # 0.1 10*3/uL (0.0-0.2); Basophils % 0.7 % (0.0-0.8); Eosinophils # 0.5 10*3/uL (0.0-0.87); Eosinophils % 4.5 % (0.00-10.9); Hematocrit 30.9 VOL% (35.7-47.0); Hemoglobin 9.9 GM/DL (12.0-16.0); Immature Granulocytes % 0.6 %; Immature Granulocytes Absolute 0.07 #; Lymphocytes # 1.2 10*3/uL (1.4-4.0); Lymphocytes % 10.1 % (21.3-54.2); Mean Corpuscular Volume 92.5 FL (87-102); Mean Platelet Volume 8.7 FL (9.6-12.0); Monocytes % 10.9 % (1.7-12.7); Neutrophils % 73.2 % (38.7-73.9); Platelet Count 292 T/CUMM (130-400); Red Blood Count 3.34 MC/CUMM (3.8-5.5); Red Cell Distribution Width 14.9 % (9.3-17.3); White Blood Count 11.8 T/CUMM (4-12)
[2021-04-15] MEDS ORDERED: HYDROmorphone 2 MG/1 ML VIAL IV STA (13:26)
[2021-04-15 13:36] LABS: Alanine Aminotransferase 19 U/L (13-56); Albumin 2.6 G/DL (3.4-5.0); Alkaline Phosphatase 114 U/L (45-117); Aspartate Amino Transferase 15 U/L (0-37); Bilirubin,Total < 0.39 MG/DL (0.2-1.0); Blood Urea Nitrogen 46 MG/DL (7-18); Calcium 8.6 MG/DL (8.5-10.1); Carbon Dioxide 20 MMOL/L (21-32); Estimated Glom Filtration Rate 30 ML/MIN; Glucose 98 MG/DL (74-106); Osmolality,Calculated 286.7 MOS/KG (273-304); Potassium 4.6 MMOL/L (3.5-5.1); Sodium 138 MMOL/L (136-145)
[2021-04-15] MEDS ORDERED: diphenhydrAMINE 50 MG/1 ML VIAL IV STA (15:15)
[2021-04-15] MEDS ORDERED: hydrALAZINE 20 MG/1 ML VIAL IV PRN (16:58)
[2021-04-15] MEDS ORDERED: ONDANSETRON 4 MG/2 ML VIAL IV PRN (16:58)
[2021-04-15] MEDS ORDERED: MORPHINE 4 MG/1 ML VIAL IV PRN (16:58)
[2021-04-15] MEDS ORDERED: GLUCAGON 1 MG VIAL IM PRN (16:58)
[2021-04-15] MEDS ORDERED: ACETAMINOPHEN 325 MG TABLET PO PRN (16:58)
[2021-04-15] MEDS ORDERED: DEXTROSE 50% 25 GM/50 ML VIAL IV PRN (16:58)
[2021-04-15] MEDS ORDERED: ENOXAPARIN 30 MG/0.3 ML SYRINGE SUBCUT SCH (17:00)
[2021-04-15] MEDS: VANCOMYCIN INJ 1,250 MG in SODIUM CHLORIDE 0.9% 250 ML IV SCH (21:04)
[2021-04-15] MEDS ORDERED: diphenhydrAMINE CAP 25 MG CAPSULE PO PRN (23:19)
[2021-04-15] MEDS: SODIUM CHLORIDE 0.9% 1,000 ML IV SCH (23:32)
[2021-04-16 03:15] LABS: Bilirubin,Urine Negative (Negative); Blood, Urine Negative (Negative); Glucose,Urine (UA) Negative (Negative); Ketones,Urine Negative (Negative); Mucus,Urine Occasional /LPF (Occasional); Nitrite,Urine Negative (Negative); Protein,Urine 30 MG/DL; RBC,Urine 2 /HPF (0-4); Renal Epithelial Cells,Urine Occasional /HPF (<1); Squamous Epithelial Cell,Urine Occasional /HPF (0-10); Urine Appearance CLEAR (Clear); Urine Color Yellow (Yellow); Urine Specific Gravity 1.017 (1.001-1.035); Urine Urobilinogen < 2.0 EU/DL (0.2-1.0)
[2021-04-16 06:19] LABS: Basophils # 0.1 10*3/uL (0.0-0.2); Basophils % 0.4 % (0.0-0.8); Eosinophils # 0.4 10*3/uL (0.0-0.87); Eosinophils % 2.9 % (0.00-10.9); Hematocrit 28.9 VOL% (35.7-47.0); Hemoglobin 8.7 GM/DL (12.0-16.0); Immature Granulocytes % 0.7 %; Immature Granulocytes Absolute 0.09 #; Lymphocytes # 0.8 10*3/uL (1.4-4.0); Lymphocytes % 6.1 % (21.3-54.2); Mean Corpuscular HGB Conc 30.1 GM/DL (32-36); Mean Corpuscular Volume 96.7 FL (87-102); Mean Platelet Volume 8.5 FL (9.6-12.0); Neutrophils % 80.9 % (38.7-73.9); Platelet Count 268 T/CUMM (130-400); Red Blood Count 2.99 MC/CUMM (3.8-5.5); Red Cell Distribution Width 15.1 % (9.3-17.3); White Blood Count 12.6 T/CUMM (4-12)
[2021-04-16 06:33] LABS: Calcium 7.9 MG/DL (8.5-10.1); Osmolality,Calculated 287.3 MOS/KG (273-304); Potassium 4.2 MMOL/L (3.5-5.1)
[2021-04-16 07:01] LABS: Anisocytosis 1+; Platelet Estimate Normal
[2021-04-16 07:02] LABS: Macrocytosis 1+
[2021-04-16] MEDS: PANTOPRAZOLE 40 MG TABLET PO SCH (08:05)
[2021-04-16] MEDS: cefTRIAXone 1,000 MG in SODIUM CHLORIDE 0.9% 100 ML IV SCH (10:10)
[2021-04-16] MEDS: ENOXAPARIN 40 MG/0.4 ML SYRINGE SUBCUT SCH (10:12)
[2021-04-16] MEDS ORDERED: SKIN HEALING OINT (AQUAPHOR) 50 GM TUBE TOP PRN (11:07)
[2021-04-16] MEDS: lisinopriL 20 MG TABLET PO SCH ×2 (12:02→21:06)
[2021-04-16] MEDS: CYCLOBENZAPRINE 10 MG TABLET PO SCH ×2 (15:57→21:06)
[2021-04-16] MEDS: hydrOXYzine HCL 25 MG TABLET PO SCH ×2 (17:15→21:07)
[2021-04-16] MEDS: NYSTATIN 500,000 UNIT/5 ML UDCUP SWISH/SWAL SCH ×2 (17:52→21:07)
[2021-04-16] MEDS: COLLAGENASE OINT 30 GM TUBE TOP SCH (17:53)
[2021-04-16] MEDS: rOPINIRole 4 MG TABLET PO SCH (21:06)
[2021-04-16] MEDS: METOPROLOL TARTRATE 25 MG TABLET PO SCH (21:06)
[2021-04-16] MEDS: VANCOMYCIN INJ 1,250 MG in SODIUM CHLORIDE 0.9% 250 ML IV SCH (21:07)
[2021-04-16] MEDS: SODIUM CHLORIDE 0.9% 1,000 ML IV SCH (22:00)
[2021-04-17 06:31] LABS: Basophils # 0.1 10*3/uL (0.0-0.2); Basophils % 0.5 % (0.0-0.8); Eosinophils % 10.3 % (0.00-10.9); Hematocrit 26.6 VOL% (35.7-47.0); Hemoglobin 8.3 GM/DL (12.0-16.0); Immature Granulocytes % 0.9 %; Immature Granulocytes Absolute 0.09 #; Lymphocytes # 1.3 10*3/uL (1.4-4.0); Lymphocytes % 12.8 % (21.3-54.2); Mean Corpuscular HGB Conc 31.2 GM/DL (32-36); Mean Platelet Volume 8.5 FL (9.6-12.0); Monocytes % 12.7 % (1.7-12.7); Neutrophils % 62.8 % (38.7-73.9); Platelet Count 276 T/CUMM (130-400); White Blood Count 9.8 T/CUMM (4-12)
[2021-04-17 06:48] LABS: Osmolality,Calculated 285.1 MOS/KG (273-304); Potassium 3.9 MMOL/L (3.5-5.1)
[2021-04-17 07:12] LABS: Platelet Estimate Normal
[2021-04-17 07:13] LABS: Anisocytosis Slight; Burr Cells Few; Macrocytosis Slight
[2021-04-17 07:14] LABS: Polychromasia Slight
[2021-04-17] MEDS: SODIUM CHLORIDE 0.9% 1,000 ML IV SCH ×2 (07:50→19:05)
[2021-04-17] MEDS: METOPROLOL TARTRATE 25 MG TABLET PO SCH ×2 (08:25→21:14)
[2021-04-17] MEDS: lisinopriL 20 MG TABLET PO SCH ×2 (08:25→21:15)
[2021-04-17] MEDS: CYCLOBENZAPRINE 10 MG TABLET PO SCH ×3 (08:25→21:15)
[2021-04-17] MEDS: hydrOXYzine HCL 25 MG TABLET PO SCH ×3 (08:26→21:14)
[2021-04-17] MEDS: PANTOPRAZOLE 40 MG TABLET PO SCH (08:26)
[2021-04-17] MEDS: NYSTATIN 500,000 UNIT/5 ML UDCUP SWISH/SWAL SCH ×4 (09:46→21:15)
[2021-04-17] MEDS: ENOXAPARIN 40 MG/0.4 ML SYRINGE SUBCUT SCH (09:53)
[2021-04-17] MEDS: cefTRIAXone 1,000 MG in SODIUM CHLORIDE 0.9% 100 ML IV SCH (12:06)
[2021-04-17] MEDS: PIPERACILLIN/TAZOBACTAM 3,375 MG in SODIUM CHLORIDE 0.9% 100 ML IV SCH ×2 (13:20→22:56)
[2021-04-17] MEDS: COLLAGENASE OINT 30 GM TUBE TOP SCH (16:30)
[2021-04-17] MEDS: VANCOMYCIN INJ 1,250 MG in SODIUM CHLORIDE 0.9% 250 ML IV SCH (21:13)
[2021-04-17] MEDS: SODIUM BICARBONATE 650 MG TABLET PO SCH (21:14)
[2021-04-17] MEDS: rOPINIRole 4 MG TABLET PO SCH (21:15)
[2021-04-18 05:22] LABS: Basophils # 0.1 10*3/uL (0.0-0.2); Basophils % 0.7 % (0.0-0.8); Eosinophils # 1.1 10*3/uL (0.0-0.87); Eosinophils % 12.8 % (0.00-10.9); Hematocrit 25.7 VOL% (35.7-47.0); Hemoglobin 7.9 GM/DL (12.0-16.0); Immature Granulocytes % 1.4 %; Immature Granulocytes Absolute 0.12 #; Lymphocytes # 1.4 10*3/uL (1.4-4.0); Lymphocytes % 15.9 % (21.3-54.2); Mean Corpuscular HGB Conc 30.7 GM/DL (32-36); Mean Corpuscular Volume 93.8 FL (87-102); Mean Platelet Volume 8.3 FL (9.6-12.0); Neutrophils % 59.2 % (38.7-73.9); Platelet Count 280 T/CUMM (130-400); Red Blood Count 2.74 MC/CUMM (3.8-5.5); Red Cell Distribution Width 15.2 % (9.3-17.3); White Blood Count 8.7 T/CUMM (4-12)
[2021-04-18] MEDS: PIPERACILLIN/TAZOBACTAM 3,375 MG in SODIUM CHLORIDE 0.9% 100 ML IV SCH ×3 (05:23→21:03)
[2021-04-18 05:48] LABS: Eosinophils 17 % (0-10); Hypochromasia 1+; Lymphocytes 18 % (20-55); Microcytosis 1+; Platelet Estimate Adequate; Segmented Neutrophils 57 % (50-85); Total Cells Counted 100
[2021-04-18 05:50] LABS: Calcium 7.9 MG/DL (8.5-10.1); Osmolality,Calculated 284.1 MOS/KG (273-304); Potassium 3.9 MMOL/L (3.5-5.1)
[2021-04-18] MEDS: CYCLOBENZAPRINE 10 MG TABLET PO SCH (08:42)
[2021-04-18] MEDS: hydrOXYzine HCL 25 MG TABLET PO SCH ×3 (08:42→21:04)
[2021-04-18] MEDS: SODIUM BICARBONATE 650 MG TABLET PO SCH ×2 (08:42→21:04)
[2021-04-18] MEDS: lisinopriL 20 MG TABLET PO SCH ×2 (08:44→21:04)
[2021-04-18] MEDS: METOPROLOL TARTRATE 25 MG TABLET PO SCH ×2 (08:45→21:04)
[2021-04-18] MEDS: PANTOPRAZOLE 40 MG TABLET PO SCH (08:48)
[2021-04-18] MEDS: ENOXAPARIN 40 MG/0.4 ML SYRINGE SUBCUT SCH (09:43)
[2021-04-18] MEDS: NYSTATIN 500,000 UNIT/5 ML UDCUP SWISH/SWAL SCH ×4 (09:44→21:05)
[2021-04-18] MEDS: COLLAGENASE OINT 30 GM TUBE TOP SCH (09:46)
[2021-04-18] MEDS: ESCITALOPRAM 10 MG TABLET PO SCH (13:10)
[2021-04-18] MEDS ORDERED: CYCLOBENZAPRINE 10 MG TABLET PO PRN (13:30)
[2021-04-18] MEDS: DOXYCYCLINE HYCLATE 100 MG CAPSULE PO SCH (19:38)
[2021-04-18] MEDS: CEFEPIME 1,000 MG in SODIUM CHLORIDE 0.9% 100 ML IV SCH (19:39)
[2021-04-18] MEDS: rOPINIRole 4 MG TABLET PO SCH (21:05)
[2021-04-19] MEDS: CEFEPIME 1,000 MG in SODIUM CHLORIDE 0.9% 100 ML IV SCH ×3 (01:49→16:14)
[2021-04-19] MEDS: PIPERACILLIN/TAZOBACTAM 3,375 MG in SODIUM CHLORIDE 0.9% 100 ML IV SCH (05:35)
[2021-04-19] MEDS: METOPROLOL TARTRATE 25 MG TABLET PO SCH (08:30)
[2021-04-19] MEDS: DOXYCYCLINE HYCLATE 100 MG CAPSULE PO SCH ×2 (08:30→17:08)
[2021-04-19] MEDS: ESCITALOPRAM 10 MG TABLET PO SCH (08:30)
[2021-04-19] MEDS: lisinopriL 20 MG TABLET PO SCH (08:30)
[2021-04-19] MEDS: PANTOPRAZOLE 40 MG TABLET PO SCH (08:30)
[2021-04-19] MEDS: SODIUM BICARBONATE 650 MG TABLET PO SCH (08:31)
[2021-04-19] MEDS: hydrOXYzine HCL 25 MG TABLET PO SCH ×2 (08:31→15:28)
[2021-04-19] MEDS: NYSTATIN 500,000 UNIT/5 ML UDCUP SWISH/SWAL SCH ×3 (08:31→16:48)
[2021-04-19] MEDS: COLLAGENASE OINT 30 GM TUBE TOP SCH (08:43)
[2021-04-19] MEDS: ENOXAPARIN 40 MG/0.4 ML SYRINGE SUBCUT SCH (09:02)
[2021-04-19 16:24] VITALS: BP 155/67
== END 2021-04-19 18:39 | disposition home health service (06) | DRG 603 ==
LOC: EDUNIT# → EDBD → N.ED 11:49 → N.EDINP 16:58 → SUATTDRO 16:58 → N.3E 18:06
PROVIDERS: ADMIT Internal Medicine Nephrology; ATTEND Internal Medicine